=== PATIENT | female | born 1945 | race Caucasian/White ===

== ENCOUNTER 2019-07-28 07:40 | Emergency (ER) | payer OTHER, MEDICAID ==
[~2019-07-28] VITALS: Ht 152.4 cm; Wt 72.3 kg
[2019-07-28 07:50] VITALS: BP 154/82
--- NOTE | 2019-07-28 07:51 | NUR ---
Patient ambulated to bed 2 with family. RN evaluating patient at bedside.
--- NOTE | 2019-07-28 07:57 | NUR ---
C/O MID LOWER ABDOMINAL PAIN RADIATING TO LLQ ABDOMINAL PAIN X 3 DAYS. MED HX:HTN. DENIES N/V/D; SKIN IS PINK/WARM/DRY; AAOX4 WITH EVEN AND STEADY GAIT; LUNGS CLEAR BL; HR EVEN AND REGULAR; PT DENIES ANY FEVER, CP, SOB, OR COUGH AT THIS TIME; PATIENT STATES PAIN OF 9/10 AT THIS TIME. PATIENT POSITIONED FOR COMFORT; HOB ELEVATED; BEDRAILS UP X1; BED DOWN. ER MD MADE AWARE OF PT STATUS.
--- NOTE | 2019-07-28 08:15 | NUR ---
PT GOING TO X-RAY AT THIS TIME
--- NOTE | 2019-07-28 08:20 | NUR ---
LAB AT BEDSIDE.
[2019-07-28 09:27] LABS: BASOPHILS % (AUTO) 0.7 % (0.0-2.0); EOSINOPHILS # (AUTO) 0.2 K/uL (0-0.4); EOSINOPHILS % (AUTO) 2.8 % (0.0-4.0); HEMATOCRIT 44.8 % (36-48); HEMOGLOBIN 14.9 g/dL (12.0-16.0); LYMPHOCYTES # (AUTO) 1.8 K/uL (2.5-16.5); LYMPHOCYTES % (AUTO) 24.4 % (20.5-51.1); MEAN CORPUSCULAR HEMOGLOBIN 30 pg (27-31); MEAN CORPUSCULAR HGB CONC 33 g/dL (33-37); MEAN CORPUSCULAR VOLUME 90.1 fL (80-94); MONOCYTES # (AUTO) 0.5 K/uL (0.8-1.0); MONOCYTES % (AUTO) 6.7 % (1.7-9.3); NEUTROPHILS # (AUTO) 4.9 K/uL (1.8-7.7); NEUTROPHILS % (AUTO) 65.4 % (42.2-75.2); PLATELET COUNT (AUTO) 291 K/uL (140-450); RED BLOOD CELL COUNT(AUTO) 4.97 MIL/uL (4.20-5.40); RED CELL DISTRIBUTION WIDTH 14.2 % (11.6-13.7); WHITE BLOOD COUNT (AUTO) 7.5 K/uL (4.8-10.8)
[2019-07-28 09:34] LABS: ALBUMIN 4.1 g/dL (3.4-5.0); ASPARTATE AMINOTRANSFERASE 21 U/L (15-37); CHLORIDE 105 mmol/L (98-107); CREATININE 0.8 mg/dL (0.6-1.3); GLUCOSE 115 mg/dL (74-106); POTASSIUM 4.2 mmol/L (3.5-5.1); SODIUM SERUM 142 mmol/L (136-145); TOTAL BILIRUBIN 0.4 mg/dL (0.0-1.0); UREA NITROGEN, BLOOD 11 mg/dL (7-18)
[2019-07-28 10:09] VITALS: BP 143/77
--- NOTE | 2019-07-28 10:09 | NUR ---
Patient discharged with v/s stable. Written and verbal after care instructions given and explained. Patient verbalized understanding. Ambulatory with steady gait. All questions addressed prior to discharge. Advised to follow up with PMD.
[2019-07-28 12:31] LABS: ANION GAP 17.4 (8-16); CARBON DIOXIDE 23.8 mmol/L (21-32)
== END 2019-07-28 10:09 | disposition home or self-care (01) ==
LOC: MED 07:40
DX: R10.33 Periumbilical pain (principal); I10 Essential (primary) hypertension
CPT/HCPCS: 36415; 71046; 80053; 81002; 85025; 99284

== ENCOUNTER 2019-08-24 08:42 | Emergency (ER) | payer OTHER, MEDICAID ==
[~2019-08-24] VITALS: Ht 152.4 cm; Wt 73.1 kg
[2019-08-24 08:44] VITALS: BP 142/69
--- NOTE | 2019-08-24 08:46 | NUR ---
Patient ambulated to bed 7. RN evaluating patient at bedside.
--- NOTE | 2019-08-24 08:54 | NUR ---
REPORT RECIEVED FROM INSTRUCTOR NURSE. 73/F TO ED WITH C/O L SIDED FLANK/HIP PAIN UPON TOUCH/MOVEMENT. PT REPORTS PREVIOUS DX OF SHINGLES. SCABBED LESION NOTED TO L UPPER HIP. NO DISCAHRGE OR DRAINAGE NOTED. PT IN BED FOR MD DO.
--- NOTE | 2019-08-24 08:56 | NUR ---
Dr. Wan is evaluating the patient at bedside.
--- NOTE | 2019-08-24 09:05 | NUR ---
AWARE OF PAIN SCORE OF 10. OKAY TO D/C.
[2019-08-24 09:07] VITALS: BP 142/69
--- NOTE | 2019-08-24 09:08 | NUR ---
Patient discharged with v/s stable. Written and verbal after care instructions given and explained. Patient alert, oriented and verbalized understanding of instructions. Ambulatory with steady gait. All questions addressed prior to discharge. ID band removed. Patient advised to follow up with PMD. Rx of GABAPENTIN given. Patient educated on indication of medication including possible reaction and side effects. Opportunity to ask questions provided and answered.
== END 2019-08-24 09:08 | disposition home or self-care (01) ==
LOC: MED 08:42
DX: B02.29 Other postherpetic nervous system involvement (principal); I10 Essential (primary) hypertension; Z90.49 Acquired absence of other specified parts of digestive tract
CPT/HCPCS: 99283

== ENCOUNTER 2021-08-21 15:56 | Emergency (ER) | payer OTHER, MEDICAID ==
[~2021-08-21] VITALS: Ht 149.9 cm; Wt 72.1 kg
[2021-08-21 16:10] VITALS: BP 138/76
--- NOTE | 2021-08-21 16:18 | NUR ---
PT UNABLE TO GIVE URINE AT THIS TIME, SAMPLE CUP WAS GIVEN, PT RETURNED TO LOBBY AT THIS TIME
[2021-08-21] MEDS ORDERED: ONDA-188 PO (18:49)
[2021-08-21] MEDS ORDERED: ATRO1TAB PO (18:49)
[2021-08-21 19:01] VITALS: BP 138/76
--- NOTE | 2021-08-21 19:01 | NUR ---
Patient discharged with v/s stable. Written and verbal after care instructions given and explained. Patient alert, oriented and verbalized understanding of instructions. Ambulatory with steady gait. All questions addressed prior to discharge. ID band removed. Patient advised to follow up with PMD. Rx of LOMOTIL AND ZOFRAN given. Patient educated on indication of medication including possible reaction and side effects. Opportunity to ask questions provided and answered.
--- NOTE | 2021-08-21 19:01 | NUR ---
NO NURSING INTERVENTIONS IMPLEMENTED
== END 2021-08-21 19:01 | disposition home or self-care (01) ==
LOC: MED 15:56
DX: R11.10 Vomiting, unspecified (principal); R19.7 Diarrhea, unspecified; I10 Essential (primary) hypertension; Z79.899 Other long term (current) drug therapy
CPT/HCPCS: 99283